=== PATIENT | male | born 1955 | race Caucasian/White ===

== ENCOUNTER 2016-07-22 18:51 | Emergency (ER) | payer BC ==
[2016-07-22 21:31] LABS: HEMOGLOBIN 15.4 gm/dl (14.0-17.5); RED BLOOD COUNT 5.25 M/UL (4.20-5.50); WHITE BLOOD COUNT 6.5 K/UL (4.5-11.0)
[2016-07-22 21:50] LABS: BUN/CREATININE RATIO 15 (0-10)
== END 2016-07-23 00:35 | disposition home or self-care (01) ==
LOC: ER1 18:51
PROVIDERS: Emergency Medicine
DX: R10.31 Right lower quadrant pain (principal); R10.9 Unspecified abdominal pain
CPT/HCPCS: 36415; 80053; 81001; 83690; 85025; 87086; 93005; 96361; 96374; 96375; 99284; J2270; J2405